=== PATIENT | male | born 1965 | race Caucasian/White ===

== ENCOUNTER → 2017-03-18 | Emergency (ER) | payer OTHER ==
[~2017-03-18] VITALS: Ht 188 cm; Wt 294.8 kg
[~2017-03-18] MED LIST: ALLOPURINOL300 MG PO; ASPIR 8181 MG PO; B-50 COMPLEX1 EAC1 PO; BUPROPION HCL200 MG PO; BUSPIRONE HCL15 MG PO; DILTIAZEM ER420 MG PO; FENOFIBRATE145 MG PO; FORTAMET500 MG PO; FUROSEMIDE20 MG PO; GLIPIZIDE5 MG PO; GLUCOTROL5 MG PO; KEFLEX500 MG PO; LEVAQUIN750 MG PO; LOSARTAN POTASS50 MG PO; METFORMIN HCL500 MG PO; METOPROLOL SUCC25 MG PO; MICONAZOLE 7100 MG TOP; NIACINAMIDE MISC; SIMVASTATIN40 MG PO; VITAMIN A AND1 EACH PO; VITAMIN B COMP1 EACH PO; VITAMIN C500 M1 PO; VITAMIN D35000 UNIT PO; ZYBAN150 MG PO
== END | disposition home or self-care (01) ==
LOC: ED 14:19
DX: J96.92 Respiratory failure, unspecified with hypercapnia (principal); E66.01 Morbid (severe) obesity due to excess calories; I10 Essential (primary) hypertension; Z87.442 Personal history of urinary calculi; Z88.1 Allergy status to other antibiotic agents; Z88.8 Allergy status to other drugs, medicaments and biological substances; Z79.899 Other long term (current) drug therapy
CPT/HCPCS: 36415; 36600; 71045; 80053; 82803; 83880; 85025; 93970; 94660; 99285

== ENCOUNTER 2017-07-05 11:57 | Emergency (ER) | payer OTHER ==
[~2017-07-05] VITALS: Ht 188 cm; Wt 294.8 kg
[~2017-07-05 11:57] MED LIST changes: -FORTAMET500 MG PO; -FUROSEMIDE20 MG PO; -GLUCOTROL5 MG PO
[2017-07-05] MEDS ORDERED: FORTAMET500 MG PO (12:08)
[2017-07-05] MEDS ORDERED: FUROSEMIDE20 MG PO (12:09)
[2017-07-05] MEDS ORDERED: GLUCOTROL5 MG PO (12:10)
--- OUTSIDE RECORDS SUMMARY | 2017-07-05 13:11 | XMS | Clinical Summary ---
Demographics + + + | Address | [address] | | | [place] [address] | + + + | Home Phone | | + + + | Preferred Language | Unknown | + + + | Marital Status | Single | + + + | Anglican Affiliation | PRO | + + + | Race | White | + + + | Ethnic Group | Not or | + + + Author + + + | Author | [facility] | + + + | Organization | [facility] | + + + | Address | Unknown | + + + | Phone | Unavailable | + + + Support + + + + + | Name | Relationship | Address | Phone | + + + + + | Senait Berger | ECON | Unknown | | + + + + + | MONICA BERGER | ECON | [address] | | | | | [place] | | | | | [address] | | + + + + + Care Team Providers + +------+ + | Care Learning Facilitator Name | Role | Phone | + +------+ + | No Pcp Per Patient | PP | Unavailable | + +------+ + Source Comments DAWOOD is fully live on both EpicCare Ambulatory and EpicCare InPatient.[facility] Allergies + + + + + + | Active Allergy | Reactions | Severity | Noted | Comments | | | | | Date | | + + + + + + | Bacitracin | Unknown | | 10/27/19 | | | | | | 13 | | + + + + + + | Neomycin | Unknown | | 10/27/19 | | | | | | 13 | | + + + + + + | Polymyxin B | Unknown | | 10/27/19 | | | | | | 13 | | + + + + + + Current Medications + + +-------+---------+------+------+-------+ | Prescription | Sig. | Disp. | Refills | Star | End | Statu | | | | | | t | Date | s | | | | | | Date | | | + + +-------+---------+------+------+-------+ | buPROPion SR 150 | Take 150 mg by mouth | | | | | Activ | | mg Oral tablet | two times daily. | | | | | e | | extended | Indications: MAJOR | | | | | | | releaseIndications: | DEPRESSIVE DISORDER | | | | | | | major depressive | | | | | | | | disorder | | | | | | | + + +-------+---------+------+------+-------+ | miconazole 2 % | Apply 2 % to | | | | | Activ | | Topical | affected area two | | | | | e | | CreamIndications: | times daily. | | | | | | | cutaneous | Indications: | | | | | | | candidiasis | Cutaneous | | | | | | | | Candidiasis | | | | | | + + +-------+---------+------+------+-------+ | glipiZIDE 5 mg | Take 5 mg by mouth | | | | | Activ | | oral tablet | two times daily. | | | | | e | + + +-------+---------+------+------+-------+ | acetaminophen 500 | Take 2 tablets by | | | 11/0 | | Activ | | mg oral tablet | mouth every six | | | 3/20 | | e | | | hours as needed. | | | 16 | | | + + +-------+---------+------+------+-------+ | vitamin E 400 unit | Take 1 capsule by | | | 11/0 | | Activ | | oral capsule | mouth once daily. | | | 06/02 | | e | | | | | | 16 | | | + + +-------+---------+------+------+-------+ Active Problems + + + | Problem | Noted Date | + + + | Acute pyelonephritis | 01/13/2016 | + + + | Fall from ground level | 01/13/2016 | + + + | UTI (lower urinary tract infection) | 10/27/2012 | + + + | Gram-negative bacteremia | 10/26/2012 | + + + | Morbid obesity with BMI of 70 and over, adult (HCC) | 10/26/2012 | + + + | Sleep apnea, obstructive | 10/26/2012 | + + + | Diabetes mellitus type 2 in obese ([facility]) | 10/26/2012 | + + + | Stasis dermatitis of both legs | 10/26/2012 | + + + | Nephrolithiasis | 10/26/2012 | + + + | Depression | 10/26/2012 | + + + | Hypertension | 10/26/2012 | + + + Social History + +-------+ +--------+------+ | Tobacco Use | Types | Packs/Day | Years | Date | | | | | Used | | + +-------+ +--------+------+ | Never Smoker | | | | | + +-------+ +--------+------+ + + +---------+ + | Alcohol Use | Drinks/We | oz/Week | Comments | | | ek | | | + + +---------+ + | No | | | | + + +---------+ + + + + | Sex Assigned at | Date Recorded | | | | + + + | Not on file | | + + + Last Filed Vital Signs + + + + | Vital Sign | Reading | Time Taken | + + + + | Blood Pressure | 140/77 | 01/17/2016 8:24 AM PDT | + + + + | Pulse | 94 | 01/17/2016 8:24 AM PDT | + + + + | Temperature | 37 C (98.6 F) | 01/17/2016 8:24 AM PDT | + + + + | Respiratory Rate | 24 | 01/17/2016 8:24 AM PDT | + + + + | Oxygen Saturation | 93% | 01/17/2016 8:24 AM PDT | + + + + | Inhaled Oxygen | - | - | | Concentration | | | + + + + | Weight | 293 kg (645 lb 15.2 | 10/26/2012 4:00 AM PDT | | | oz) | | + + + + | Height | 188 cm (6' 2") | 10/26/2012 4:00 AM PDT | + + + + | Body Mass Index | 82.93 | 10/26/2012 4:00 AM PDT | + + + + Plan of Treatment + + + + + | Health Maintenance | Due Date | Last Done | Comments | + + + + + | INFLUENZA VACCINE | | | | | (FLU SHOT) | 8 | | | + + + + + Results Not on filefrom Last 3 Months
--- OUTSIDE RECORDS SUMMARY | 2017-07-05 13:11 | XMS | Clinical Summary ---
Demographics + + + | Address | [address] | | | [place] [address] | + + + | Home Phone | | + + + | Preferred Language | Unknown | + + + | Marital Status | Single | + + + | Yazidi Affiliation | Unknown | + + + | Race | Unknown | + + + | Ethnic Group | Unknown | + + + Author + + + | Author | [facility] | | | and [place] | + + + | Organization | [facility] | | | and [place] | + + + | Address | Unknown | + + + | Phone | Unavailable | + + + Support + + +---------+ + | Name | Relationship | Address | Phone | + + +---------+ + | SILVIA BERGER | ECON | Unknown | | + + +---------+ + Care Team Providers + +------+ + | Care Customer Service Representative Teller Name | Role | Phone | + +------+ + PP | Unavailable | + +------+ + Allergies Not on File Current Medications Not on file Active Problems Not on file Social History + +-------+ +--------+------+ | Tobacco Use | Types | Packs/Day | Years | Date | | | | | Used | | + +-------+ +--------+------+ | Never Assessed | | | | | + +-------+ +--------+------+ + + + | Sex Assigned at | Date Recorded | | | | + + + | Not on file | | + + + Plan of Treatment + + + + + | Health Maintenance | Due Date | Last Done | Comments | + + + + + | Vaccine: | | | | | Dtap/Tdap/Td (1 - | 5 | | | | Tdap) | | | | + + + + + | COLON CANCER | | | | | SCREENING | 6 | | | | (COLONOSCOPY EVERY | | | | | 10 YEARS 50-75) | | | | + + + + + | Vaccine: Influenza | | | | | (Season Ended) | 8 | | | + + + + + Results Not on filefrom Last 3 Months"
--- OUTSIDE RECORDS SUMMARY | 2017-07-05 13:11 | XMS | Clinical Summary ---
Demographics + + + | Address | [address] | | | [place] [address] | + + + | Home Phone | | + + + | Preferred Language | Unknown | + + + | Marital Status | Single | + + + | Restorationist Affiliation | PRO | + + + [...] + | MONICA BER[place] | ECON | [address] | | | | | [place] | | | | | [phone] | | + + + + + Care Team Providers + +------+ + | Care Barbed Wire Machine Operator Name | Role | Phone | + +------+ + | No Pcp Per Patient | PP | Unavailable | + +------+ + Source Comments DAWOOD is fully live on both EpicCare Ambulatory and EpicCare InPatient.[facility] Allergies + + + + + + [...] | Diabetes mellitus type 2 in obese ([facility]) | 10/26/2012 | + + + | [...]
--- OUTSIDE RECORDS SUMMARY | 2017-07-05 13:11 | XMS | Clinical Summary ---
Demographics + + + | Address | [address] | | | [place] [address] | + + + | Home Phone | | + + + | Preferred Language | Unknown | + + + | Marital Status | Single | + + + | Anglican Affiliation | Unknown | + + + | Race | Unknown | + + + | Ethnic Group | Unknown | + + + Author + + + | Author | [facility] | | | and [place] | + + + | Organization | [facility] | | | and [...] Team Providers + +------+ + | Care Keyboard Operator Name | Role | Phone | [...]
== END 2017-07-06 02:10 | disposition short-term general hospital (02) ==
LOC: ED 11:57
DX: L03.115 Cellulitis of right lower limb (principal); L03.116 Cellulitis of left lower limb; E66.01 Morbid (severe) obesity due to excess calories; I10 Essential (primary) hypertension; E11.9 Type 2 diabetes mellitus without complications; Z88.1 Allergy status to other antibiotic agents; Z79.84 Long term (current) use of oral hypoglycemic drugs; Z79.899 Other long term (current) drug therapy
CPT/HCPCS: 36415; 71045; 80053; 81001; 83605; 85025; 87040; 87088; 93971; 96374; 96376; 99285; J2543; J7030

== ENCOUNTER 2017-10-06 11:03 | Emergency (ER) | payer OTHER ==
[~2017-10-06] VITALS: Ht 188 cm; Wt 294.8 kg
[~2017-10-06 11:03] MED LIST changes: +FORTAMET500 MG PO; +FUROSEMIDE20 MG PO; +GLUCOTROL5 MG PO
[2017-10-06] MEDS ORDERED: ASPIRIN81 MG PO (11:33)
[2017-10-06] MEDS ORDERED: LIPITOR10 MG PO (11:35)
--- NOTE | 2017-10-07 11:38 | EKG ---
[facility] [address] [place] [address] Signed Sinus tachycardia Abnormal QRS-T angle, consider primary T wave abnormality Abnormal ECG No previous ECGs available Confirmed by DEBORAH REARDON MD ([id number]) on 10/07/2017 11:38:28 AM Electronically Signed By: DEBORAH REARDON MD 10/07/17 1138 PATIENT NAME: ABCHANDRAKANT Electrocardiogram DATE OF : 65 PHYSICIAN: DEBORAH REARDON MD REPORT #: [id number] REPORT IS CONFIDENTIAL AND NOT TO BE RELEASED WITHOUT AUTHORIZATION
== END 2017-10-07 13:18 | disposition short-term general hospital (02) ==
LOC: ED 11:03
DX: A41.9 Sepsis, unspecified organism (principal); I10 Essential (primary) hypertension; E11.9 Type 2 diabetes mellitus without complications; E66.01 Morbid (severe) obesity due to excess calories; Z79.82 Long term (current) use of aspirin; Z79.899 Other long term (current) drug therapy; Z79.84 Long term (current) use of oral hypoglycemic drugs
CPT/HCPCS: 71045; 80053; 81001; 83605; 85025; 85610; 85730; 93005; 93010; 96374; 99285; J0692; J0696; J1815; J3370; J7030; J7060

== ENCOUNTER 2020-09-13 20:05 | Emergency (ER) | payer OTHER ==
[~2020-09-13] VITALS: Ht 188 cm; Wt 362.9 kg
[~2020-09-13 20:05] MED LIST changes: +ASPIRIN81 MG PO; +LIPITOR10 MG PO
--- OUTSIDE RECORDS SUMMARY | 2020-09-13 20:14 | XMS ---
PreManage Notification: CHANDRAKANT BERGER Security Public Health Training Assistant Events No recent Security Events currently on file CRITERIA MET - Group Notification CARE PROVIDERS There are no care providers on record at this time. Vaibhav has no Care Guidelines for this patient. Care History Social 03/24/2016 [facility] Please call the materials management manager if this patient returns to the Department at any time, even nights or weekends Brian Ortiz RN E.D. [facility] ([address] [facility] NOTE: Visits indicate total known visits. ED/UCC VISIT TRACKING (12 MO.) 09[facility]/2020 [facility] COMPLAINT: - ABD PAIN INPATIENT VISIT TRACKING (12 MO.) No inpatient visits to display in this time frame [id number]
== END 2020-09-15 13:57 | disposition short-term general hospital (02) ==
LOC: ED 20:05
DX: K81.0 Acute cholecystitis (principal); K85.90 Acute pancreatitis without necrosis or infection, unspecified; I10 Essential (primary) hypertension; E78.00 Pure hypercholesterolemia, unspecified; E11.9 Type 2 diabetes mellitus without complications; E66.01 Morbid (severe) obesity due to excess calories; Z88.1 Allergy status to other antibiotic agents; Z79.899 Other long term (current) drug therapy; Z79.82 Long term (current) use of aspirin; Z20.822 Contact with and (suspected) exposure to COVID-19
CPT/HCPCS: 76705; 80053; 81001; 83605; 83690; 85025; 96374; 96375; 96376; 99285-25; C9803; J0696; J1885; J2270; J2405; J7030; U0003